=== PATIENT | female | born 1985 | race Caucasian/White ===

== ENCOUNTER 2016-12-24 17:36 | Emergency (ER) | payer SELFPAY ==
[~2016-12-24] VITALS: Ht 157.5 cm; Wt 94.2 kg
[2016-12-24 17:37] VITALS: Ht 157.5 cm; Wt 94.2 kg
--- NOTE | 2016-12-24 17:41 | NUR ---
PROVIDER ALYSSA GARAY APRN IN ROOM WITH PT.
--- NOTE | 2016-12-24 17:54 | ERPDOC ---
Departure Disposition Decision Date: Dec 24, 2016 Disposition Decision Time: 17:57 Disposition: 01 DISCHARGED HOME, SELF-CARE Impression Impression Impression: Primary Impression: Pain, dental Severity: Moderate Condition: Stable Seen By: Mid-level only Patient Instructions: Dental Caries (ED) Problems/Meds/Labs Reviewed?: Yes Medications reviewed and manag: Yes Additional Instructions: Take the Grand Tower and the Pen VK as prescribed. May also take Ibuprofen 800mg three times daily to help with pain. Follow up with a dentist [facility] for further evaluation of the pain. Return to ER with any fever, swelling, or any other concerns. Follow up care ordered?: Yes Mental Status: Alert Scripts Penicillin V Potassium (Penicillin V Potassium) 250 Mg Tablet 1 TAB PO TID, #30 TAB 0 Refills Prov: FACUNDO GARAY APRN 12/24/16 Hydrocodone/Acetaminophen (Grand Tower 5-325 Tablet) 5-325 Tablet 1 TAB PO Q6H Y for PAIN, #12 TAB 0 Refills Prov: FACUNDO GARAY APRN 12/24/16 HPI General Chief Complaint: Toothache Stated Complaint: L FACIAL PAIN Time Seen by Provider: 17:43 Source: patient Exam Limitations: no limitations HPI Dental Initial Comments She has had some dental pain and gum swelling for the last 2 days. She does have a few fractured teeth that have temporary fillers in place. They have been there for some time. She does have money to get in to seeing a dentist but as she is not established anywhere she is having to wait for an opening for the dentist. Did call today and was advised to call again in the morning. She has not had a fever at all. Has been taking Tylenol at home and it is not helping much. Occurred At: home Onset: Gradual Duration: other (Over the last 2 days) Severity: moderate Location: L upper, L lower Problem: fractured tooth Associated Symptoms: facial swelling (left facial swelling), fractured tooth, gum swelling (mild), DENIES: cheek swelling, cough, dental trauma, diarrhea, drooling, dyspnea, fever, gum laceration, headache, high pitched cry/voice, hoarseness, impacted tooth, loose tooth, nausea, retained foreign body, rhinorrhea, sinus drainage, sinus pain, trouble chewing, trouble swallowing, vomiting Allergies: Coded Allergies: theophylline (Verified Allergy, Unknown, 12/24/16) Review of Systems Constitutional Constitutional: DENIES: chills, dizziness, fatigue, fever, weakness ENMT Ears: DENIES: drainage, pain Sinuses: DENIES: congestion, rhinorrhea Mouth/Throat: DENIES: painful swallowing, scratchy throat, sore throat Teeth: pain (left lower dental pain and left upper lateral incisor) Integumentary Skin: DENIES: rash Neurological General: DENIES: headache, numbness, tingling, weakness Exam General General Nourishment: well nourished, well developed, appears stated age, no acute distress, adult General Body Habitus: well groomed Vital Signs: RN Vital Signs have been reviewed: Yes [place] Dental Face: tender (Mild TTP over the left lower jaw and the left maxilla in the area of the teeth that are painful. ), NOT FOUND: bruising, erythema, swelling Jaw: NOT FOUND: asymmetry Gums: moist, pink, NOT FOUND: exudate, lesion, swelling Teeth: caries, fractures, missing Pharynx: NOT FOUND: erythema, exudate, lateral pillar signs, swelling, uvular deviation Tonsils: NOT FOUND: erythema, exudate Neck: NOT FOUND: L anterior adenopathy, L posterior adenopathy, R anterior adenopathy, R posterior adenopathy Skin: NOT FOUND: rash Neurologic RN Documented GCS Eye Opening: Verbal: Motor: Total: Differential Diagnoses Considering: Gingival Abscess, Peritonsillar Abscess, Caries, Tooth Fracture Progress Progress Progress Will go ahead and treat her today with some Grand Tower and Pen VK. Will have her follow up with a dentist [facility] for evaluation of the teeth further. If any increased pain and swelling or fever then follow up in ER for reevaluation. FACUNDO GARAY APRN Dec 24, 2016 17:54
[2016-12-24] MEDS ORDERED: HYDR-4246 PO (17:58)
[2016-12-24] MEDS ORDERED: PENI250T2 PO (17:58)
[2016-12-24] MEDS ORDERED: IBUP-1724 PO (18:01)
[2016-12-24] MEDS ORDERED: ACET-62 PO (18:01)
[2016-12-24] MEDS ORDERED: NO ROUTINE MEDS (18:02)
[2016-12-24 18:10] VITALS: BP 119/70; PULSE 73; RESP 18; TEMP 98.2; O2SAT 98
--- NOTE | 2016-12-24 18:10 | NUR ---
DISCHARGE PT GIVEN INSTRUCTIONS FOR CONT CARE OF DENTAL CARIES W/ RX X2 NORCO 5 AND PCN V POTASSIUM. PT VERBALIZED UNDERSTANDING AND SIGNED FORM LEFT AMBULATORY W/O ASSIST ALERT VS CHARTED IN NO ACUTE DISTRESS.
== END 2016-12-24 18:10 | disposition home or self-care (01) ==
LOC: ED 17:36
DX: K08.89 Other specified disorders of teeth and supporting structures (principal)